=== PATIENT | male | born 1960 | race Caucasian/White ===

== ENCOUNTER 2017-01-19 17:20 | Emergency (ER) | payer MEDICARE ==
--- NOTE | 2017-01-19 18:01 | Diagnostic Imaging Report ---
[facility] [address] [facility].[address] 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 Clear lungs without acute infiltrate or pleural effusion. No visible radiopaque or metallic foreign bodies within the thorax. Impression: No active pulmonary pathology Electronically signed on Jan 19, 2017 5:57:01 PM PRINT CONTROLLER by: Pino SHAW
--- NOTE | 2017-01-19 18:07 | ED Physician Documentation ---
General Adult - HISTORIAN Historian: patient - HPI Stated Complaint: I feel like something is in my chest Chief Complaint: General Adult Additional Information: Heels like something behind his throat is making throat hurt and scratch. Difficult to swallow in the middle of last night. Thinks some of the hardware i nhis neck has slipped down into right side of chest. Has been without pain meds for three days and won't get any more until January 28. Has chronic pain neck and back. - ROS CONST: no problems - PAST HX Past History: other (DJD, c spine surgery with instrumentation; broken vertebra in the middle of his back) - SOCIAL HX Smoking History: cigarettes (1 PPD) - FAMILY HX Family History: No - VITAL SIGNS Vital Signs: Vital Signs Temp Pulse Resp BP Pulse Ox 97.7 F 67 16 179/96 97 01/19/17 17:36 01/19/17 17:36 01/19/17 17:36 01/19/17 17:36 01/19/17 17:36 - REVIEWED ASSESSMENTS Nursing Assessment Reviewed: Yes Vitals Reviewed: Yes Progress - Progress Progress: Suspect he is having muscle spasms 2/2 decreased pain meds, poor sleep caused by lack of usual pain meds. ED Results Lab/Radiology - Orders Orders: ED Orders Category Date Time Status CHEST 2 VIEW [CHEST P.A.&LAT 2 VIEWS] [RAD] Stat Exams 01/19/17 Completed General Adult Physical Exam - PHYSICAL EXAM GENERAL APPEARANCE: no distress EENT: eye inspection normal, pharynx normal, other (poor dentition) NECK: normal inspection (tender mid right SCM area) RESPIRATORY: no resp distress, chest non-tender, breath sounds normal CVS: reg rate & rhythm RECTAL: deferred BACK: other (movements w/o apparent pain) SKIN: warm/dry, normal color EXTREMITIES: normal range of motion (gait), no evidence of injury NEURO: CN's nml as tested, motor nml, sensation nml Discharge Clincal Impression: Neck pain Additional Instructions: Take your usual medications. Keep the appointment with your doctor on January 28. Condition: Good Disposition: 01 HOME, SELF-CARE Decision to Admit: NO Decision Time: 18:07
[2017-01-19 18:10] VITALS: BP 169/91
== END 2017-01-19 18:06 | disposition home or self-care (01) ==
LOC: ED 17:21
DX: M54.2 Cervicalgia (principal); F17.210 Nicotine dependence, cigarettes, uncomplicated
CPT/HCPCS: 71020